=== PATIENT | female | born 1990 | race Asian ===

== ENCOUNTER 2018-12-18 11:17 | Emergency (ER) | payer BC, OTHER ==
[~2018-12-18] VITALS: Ht 165.1 cm; Wt 63.5 kg
[2018-12-18] MEDS ORDERED: CIPR-263 PO (11:30)
[2018-12-18] MEDS ORDERED: LACT10SO PO (11:30)
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
--- NOTE | 2018-12-18 11:40 | NUR ---
ERMD at bedside for MSE
--- NOTE | 2018-12-18 12:02 | NUR ---
Patient transported to CT in stable condition.
--- NOTE | 2018-12-18 12:32 | NUR ---
Patient discharged to home in stable conditon. Written and verbal after care instructions given. Patient verbalizes understanding of instructions. Patient ambulated with stable gait. NAD
[2018-12-18 12:33] VITALS: BP 114/82
== END 2018-12-18 12:35 | disposition home or self-care (01) ==
LOC: ER 11:17
DX: S09.90XA Unspecified injury of head, initial encounter (principal); Z88.1 Allergy status to other antibiotic agents; Z88.8 Allergy status to other drugs, medicaments and biological substances; Z79.2 Long term (current) use of antibiotics; Z79.899 Other long term (current) drug therapy; V49.9XXA Car occupant (driver) (passenger) injured in unspecified traffic accident, initial encounter; Y93.89 Activity, other specified; Y92.89 Other specified places as the place of occurrence of the external cause; Y99.8 Other external cause status
CPT/HCPCS: 70450; A4663